=== PATIENT | female | born 1960 | race Caucasian/White ===

== ENCOUNTER 2022-08-16 09:34 | Day surgery (SDC) | payer OTHER ==
[2022-08-16] VITALS (15 sets, daily range): BP systolic 101–143; BP diastolic 49–78; PULSE 46–57; TEMP 97.6–98.5
[~2022-08-16] VITALS: Ht 160 cm; Wt 98.1 kg
[~2022-08-16 09:34] MED LIST: ALEVE220 MG PO; [UNRECOGNIZED DRUG - OTHER] PO; [UNRECOGNIZED DRUG - OTHER] PO; [UNRECOGNIZED DRUG - OTHER] PO; [UNRECOGNIZED DRUG - OTHER] PO; [UNRECOGNIZED DRUG - OTHER] PO
[2022-08-16] MEDS ORDERED: CARDIZEM120 MG PO ×2 (10:24→13:50)
[2022-08-16] MEDS ORDERED: ELIQUIS 5MG PO (10:24)
[2022-08-16] MEDS ORDERED: ASPIRIN E.C. 8181 MG PO (10:25)
[2022-08-16] MEDS ORDERED: LAMISIL250 M1 PO (10:25)
[2022-08-16] MEDS ORDERED: TIAZAC120 MG PO (10:29)
[2022-08-16] MEDS ORDERED: [UNRECOGNIZED DRUG - OTHER] TOP (10:32)
[2022-08-16] MEDS ORDERED: [UNRECOGNIZED DRUG - OTHER] PO (10:33)
[2022-08-16] MEDS ORDERED: [UNRECOGNIZED DRUG - OTHER] PO (10:33)
[2022-08-16] MEDS ORDERED: [UNRECOGNIZED DRUG - OTHER] PO (10:34)
[2022-08-16] MEDS ORDERED: [UNRECOGNIZED DRUG - OTHER] PO (10:35)
[2022-08-16] MEDS ORDERED: [UNRECOGNIZED DRUG - OTHER] TOP (10:36)
[2022-08-16] MEDS ORDERED: [UNRECOGNIZED DRUG - OTHER] PO (10:37)
[2022-08-16 10:40] LABS: CREATININE, serum 0.74 mg/dL (0.57-1.11)
[2022-08-16] MEDS ORDERED: TERRAZYME PO (10:44)
[2022-08-16] MEDS ORDERED: [UNRECOGNIZED DRUG - OTHER] PO (10:45)
[2022-08-16 10:48] LABS: MEAN CELL VOLUME 88 fl (80.0-100.0); MEAN CORPUSCULAR HEMOGLOBIN 30 pg (27-31); MEAN CORPUSCULAR HGB CONC 34 g/dl (33.0-37.0); PLATELET COUNT 202 K/mm3 (130-400); RED BLOOD COUNT 4.65 M/mm3 (4.10-5.30); REDCELL DISTRIBUTION WIDTH-CV 13.2 % (11.5-14.5)
[2022-08-16 11:40] LABS: PROTHROMBIN TIME 11.4 SECONDS (9.7-12.8)
[2022-08-16 11:43] LABS: PARTIAL THROMBOPLASTIN TIME 31.7 SECONDS (26.0-37.0)
--- NOTE | 2022-08-16 12:12 | NUR ---
SEE MERGE FOR ALL INTERVENTIONS, VITAL SIGNS AND MEDICATIONS.
--- NOTE | 2022-08-16 13:15 | NUR ---
Pt to room 309 on medical floor, oriented to room & call light system. Shift assessment completed. Med rec completed. R radial incision site with compression band in place, no hematoma, strong pulse noted, CMS WNL. Post-op vitals in place. Call light within reach.
--- NOTE | 2022-08-16 16:03 | NUR ---
Notified cardiology team pt has been experience SOB. Placed on 2L per NC for comfort, aware. O2 sats have maintained >95%, WNL since arrival to floor. Brillinta discontinued and effient now on order.
--- NOTE | 2022-08-16 16:28 | NUR ---
Radial compression band removed from R wrist. Total of ~15cc of air removed. Band-aid in place. CMS WNL. Post-vitals remain in place.
--- NOTE | 2022-08-16 18:05 | NUR ---
Post-op vitals remain stable. Pt expresses her SOB has improved, does not experience dypsnea as frequently. R radial incision site with band-aid in place, remains CDI.
[2022-08-17] VITALS (7 sets, daily range): BP systolic 124–141; BP diastolic 65–73; PULSE 51; TEMP 97.6–98.2
--- NOTE | 2022-08-17 02:24 | NUR ---
PT SHIFT ASSESSMENT COMPLETED 1999 SEE DOCUMENTATION. PTS SOA LESS OFTEN PT NO LONGER ON O2 FOR COMFORT. RT RADIAL SITE CDI WITHOUT BANDAGE. PT RESTING IN BED COMFORTABLE IN LOW BED WITH CALL LIGHT WITHIN REACH.
--- NOTE | 2022-08-17 07:15 | NUR ---
bedside shift report received from JOSE Nelson
--- NOTE | 2022-08-17 07:50 | NUR ---
resting in bed, had breakfast and tolerated well, full assessment completed, see interventions for further info, will get up and shower now
[2022-08-17 08:36] LABS: BASO % 0.6 % (0.0-2.0); EOS # 0.2 K/mm3 (0.0-0.7); EOS % 2.8 % (0.0-4.0); GRAN # 3.6 K/mm3 (1.4-6.5); GRAN % 56.5 % (42.2-75.2); HEMATOCRIT 39.4 % (37.0-47.0); HEMOGLOBIN 13.7 g/dl (12.5-16.0); LYMPH # 2.2 K/mm3 (1.2-3.4); LYMPH % 34.2 % (20.0-51.0); MEAN CELL VOLUME 88 fl (80.0-100.0); MEAN CORPUSCULAR HEMOGLOBIN 31 pg (27-31); MEAN CORPUSCULAR HGB CONC 35 g/dl (33.0-37.0); MEAN PLATELET VOLUME 10.9 fl (7.4-10.4); MONO # 0.4 K/mm3 (0.1-0.6); MONO % 5.7 % (1.7-9.3); PLATELET COUNT 195 K/mm3 (130-400); RED BLOOD COUNT 4.46 M/mm3 (4.10-5.30); REDCELL DISTRIBUTION WIDTH-CV 13.1 % (11.5-14.5)
[2022-08-17 09:04] LABS: CALCIUM 9.4 mg/dL (8.4-10.2); CREATININE, serum 0.78 mg/dL (0.57-1.11); POTASSIUM 4.1 mmol/L (3.5-4.5)
--- NOTE | 2022-08-17 09:15 | NUR ---
Discussed when to contact the physician for signs of symptoms of complications or IA. Also reviewed risk factors for heart disease. Covered applicable modifiable risk factors including the following: tobacco cessation, HTN, hyperlipidemia, diabetes, overweight/obesity, sedentary lifestyle, and stress/depression. Patient verbalized understanding. Referral sent to Cardiac Rehab with patient's permission. Staff will proceed with obtaining [facility] authorization and contact patient to set up initial intake.
--- NOTE | 2022-08-17 09:33 | NUR ---
SW met with pt for intake. Pt confirmed living in [facility] with spouse Antolin (identified as NOK) and confirmed contact number as [phone]. Pt denied o2 and/or DME use at home. Pt denied stairs at home. Pt reports PCP as Dr. Anderson at [facility] and pharmacy as [facility] without any issues. Pt accepted DPOA and accepted paperwork understanding 2 staff need to be present to witness signature. D/C home with spouse
--- NOTE | 2022-08-17 09:54 | NUR ---
resting in bed, dietitian in to visit with patient
--- NOTE | 2022-08-17 11:57 | NUR ---
sitting up in bed eating lunch, at bedside,
[2022-08-17] MEDS ORDERED: EFFIENT10 MG PO (12:42)
[2022-08-17] MEDS ORDERED: LIPITOR 80MG80 MG PO (12:42)
--- NOTE | 2022-08-17 13:30 | NUR ---
discharge instructions given to patient, verbalizes understanding
--- NOTE | 2022-08-17 13:35 | NUR ---
discharged ambulatory
== END 2022-08-17 13:35 | disposition home or self-care (01) ==
LOC: COL.CAR 09:34 → MEDICAL 13:37 → COL.CAR 08-17 13:35
PROVIDERS: Internal Medicine Cardiovascular Disease
DX: I25.110 Atherosclerotic heart disease of native coronary artery with unstable angina pectoris (principal)
CPT/HCPCS: OP; C1769; C1874; C1887; C9600; J0153; J0583; J1644; J2250; J3010; Q9967